=== PATIENT | male | born 1940 | race Caucasian/White ===

== ENCOUNTER 2017-01-06 12:47 | Emergency (ER) | payer MEDICARE, OTHER ==
[~2017-01-06] VITALS: Ht 180.3 cm; Wt 97.0 kg
[2017-01-06 13:41] LABS: HEMATOCRIT 46.5 % (39.2-51.8); WHITE BLOOD COUNT 7.5 x10^3/uL (3.4-10)
[2017-01-06 13:52] LABS: BLOOD UREA NITROGEN 14 mg/dL (7-18)
[2017-01-06 13:59] LABS: IS PT STATUS REG ER OR PRE ER? YES
[2017-01-06 14:12] VITALS: BP 176/80
== END 2017-01-06 15:21 | disposition home or self-care (01) ==
LOC: ED 14:31
DX: R42 Dizziness and giddiness (principal); K21.9 Gastro-esophageal reflux disease without esophagitis
CPT/HCPCS: 36415; 71010; 80048; 82040; 84484; 85025; 93005; 99285

== ENCOUNTER → 2017-02-25 | Outpatient (CLI) | payer OTHER ==
[~2017-02-25] MED LIST: REGADENOSON 0.4 MG/5 ML SYRINGE ONE
== END | disposition home or self-care (01) ==
LOC: CFH 06:40
PROVIDERS: ATTEND Internal Medicine Cardiovascular Disease
DX: I08.1 Rheumatic disorders of both mitral and tricuspid valves (principal); I44.7 Left bundle-branch block, unspecified; I11.9 Hypertensive heart disease without heart failure
CPT/HCPCS: 78452; 93017; 93306; A9502; J2785

== ENCOUNTER → 2017-03-11 | Outpatient (CLI) | payer OTHER | END | disposition home or self-care (01) | LOC: CFH 08:31 | PROVIDERS: ATTEND Student in an Organized Health Care Education/Training Program | DX: M51.36 Other intervertebral disc degeneration, lumbar region (principal); M51.27 Other intervertebral disc displacement, lumbosacral region; D18.09 Hemangioma of other sites | CPT/HCPCS: 72148 ==

== ENCOUNTER → 2017-07-11 | Outpatient (CLI) | payer OTHER | END | disposition home or self-care (01) | LOC: CFH 06:41 | PROVIDERS: ATTEND Student in an Organized Health Care Education/Training Program | DX: M47.814 Spondylosis without myelopathy or radiculopathy, thoracic region (principal); M51.34 Other intervertebral disc degeneration, thoracic region | CPT/HCPCS: 72146 ==

== ENCOUNTER 2019-01-06 07:56 | Outpatient (CLI) | payer OTHER | END 2019-01-06 23:59 | disposition home or self-care (01) | LOC: CFH 07:56 | PROVIDERS: ATTEND Family Medicine | DX: Z13.6 Encounter for screening for cardiovascular disorders (principal) | CPT/HCPCS: 76706 ==

== ENCOUNTER 2019-08-29 16:43 | Observation (INO) | payer OTHER ==
[~2019-08-29] VITALS: Ht 180.3 cm; Wt 97.1 kg
[2019-08-29] MEDS ORDERED: ASPIRIN 81 MG TABLET CHEW ONE (16:53)
[2019-08-29] MEDS ORDERED: NITROGLYCERIN SINGLE TAB 0.4 MG SL ONE (16:53)
[2019-08-29] MEDS ORDERED: ASPIRIN 81 MG TABLET CHEW PO ONE (17:00)
[2019-08-29] MEDS ORDERED: SODIUM CHLORIDE FLUSH 10ML SYR IVF ONE (17:00)
[2019-08-29] MEDS ORDERED: NITROGLYCERIN SINGLE TAB 0.4 MG SL PRN (17:00)
--- NOTE | 2019-08-29 17:06 | NUR ---
Late Entry: Pt found in lobby bent over reporting crushing chest pressure with no radiaiton. Pt reports he has a hx of left bundle block. Pt take to room straight back and ekg completed no stemi detected on ekg. Prominent left bundle branch block. Pt had large bore piv placed and given 324 asa and one nitro sublingual that resolved the chest pressure, upon pressure resolving pt had a run of vtach for 6 beats. MD Greenwood informed of found event, repeat EKG shows no changes. Bedside report to Jose. Pt resting in room and a/ox4.
[2019-08-29 17:31] LABS: BASOPHILS # (AUTO) 0.06 x10^3/uL (0-0.1); BASOPHILS % (AUTO) 1 % (0-1); EOSINOPHILS # (AUTO) 0.12 x10^3/uL (0-0.4); EOSINOPHILS % (AUTO) 1 % (1-7); LYMPHOCYTES # (AUTO) 4.12 x10^3/uL (1-3.4); LYMPHOCYTES % (AUTO) 47 % (22-44); MD NO; MEAN CORPUSCULAR HEMOGLOBIN 29.2 pg (27.5-34.5); MEAN CORPUSCULAR HGB CONC 33.4 g/dL (33.2-36.2); MEAN CORPUSCULAR VOLUME 87.2 fL (81-97); MEAN PLATELET VOLUME 8.3 fL (7.4-10.4); MONOCYTES # (AUTO) 0.52 x10^3/uL (0.2-0.8); MONOCYTES % (AUTO) 6 % (2-9); NEUTROPHILS # (AUTO) 3.87 x10^3/uL (1.8-6.8); NEUTROPHILS % (AUTO) 45 % (42-75); PLATELET COUNT 275 x10^3/uL (130-400); RED BLOOD COUNT 5.79 x10^6/uL (4.38-5.82); RED CELL DISTRIBUTION WIDTH 12.8 % (9.4-14.8)
[2019-08-29 17:38] LABS: ALANINE AMINOTRANSFERASE 30 U/L (12-78); ALBUMIN 4.2 g/dL (3.4-5.0); ANION GAP 11 mmol/L (5-15); CALCIUM 8.9 mg/dL (8.5-10.1); CHLORIDE 103 mmol/L (98-107)
[2019-08-29 17:42] LABS: ALKALINE PHOSPHATASE 91 U/L (45-117); BILIRUBIN,TOTAL 0.4 mg/dL (0.2-1.0); TOTAL PROTEIN 8.2 g/dL (6.4-8.2); TROPONIN I < 0.015 ng/mL (0.000-0.045)
[2019-08-29] MEDS ORDERED: SODIUM CHLORIDE 0.9% 1,000 ML IV SCH (19:16)
[2019-08-29] MEDS ORDERED: ACETAMINOPHEN 325 MG TABLET PO PRN (19:30)
[2019-08-29] MEDS ORDERED: POTASSIUM CHLORIDE 40 MEQ in SODIUM CHLORIDE 0.9% 500 ML IV ONE (19:30)
[2019-08-29] MEDS ORDERED: PROMETHAZINE 25 MG/ML, 1ML IM PRN (19:30)
[2019-08-29] MEDS ORDERED: morphine SULFATE 10 MG/ML, 1ML IVPush PRN (19:30)
[2019-08-29] MEDS ORDERED: ONDANSETRON 2MG/ML, 2ML IVPush PRN (19:30)
[2019-08-29] MEDS ORDERED: BISACODYL 10 MG SUPP PR PRN (19:30)
[2019-08-29] MEDS ORDERED: OXYcodone IR 5MG TABLET PO PRN (19:30)
[2019-08-29] MEDS ORDERED: NITROGLYCERIN 0.4 MG BOTTLE (25 TABS) SL PRN (19:30)
[2019-08-29] MEDS ORDERED: DOCUSATE 100 MG CAPSULE PO PRN (19:30)
[2019-08-29] MEDS ORDERED: ONDANSETRON ODT 4 MG PO PRN (19:30)
[2019-08-29] MEDS ORDERED: hydrALAzine 20 MG/ML, 1ML IVPush PRN (19:30)
[2019-08-29] MEDS ORDERED: POLYETHYLENE GLYCOL 17 GM PACKET PO PRN (19:30)
[2019-08-29 19:45] VITALS: BP 138/79
[2019-08-29] MEDS ORDERED: HYDR25TA6 PO (20:11)
[2019-08-29] MEDS ORDERED: AMLO10TA4 PO (20:11)
[2019-08-29] MEDS ORDERED: VALS160T3 PO (20:11)
[2019-08-29 20:14] LABS: FREE T4 (FREE THYROXINE) 1.14 ng/dL (0.76-1.46)
[2019-08-29] MEDS: HEPARIN 5,000 UNITS/ML, 1ML SQ SCH (20:24)
[2019-08-30 01:04] VITALS: BP 119/75
[2019-08-30 02:12] LABS: BASOPHILS # (AUTO) 0.03 x10^3/uL (0-0.1); BASOPHILS % (AUTO) 1 % (0-1); EOSINOPHILS # (AUTO) 0.08 x10^3/uL (0-0.4); EOSINOPHILS % (AUTO) 1 % (1-7); LYMPHOCYTES # (AUTO) 2.45 x10^3/uL (1-3.4); LYMPHOCYTES % (AUTO) 38 % (22-44); MD NO; MEAN CORPUSCULAR HEMOGLOBIN 29.2 pg (27.5-34.5); MEAN CORPUSCULAR HGB CONC 33.3 g/dL (33.2-36.2); MEAN CORPUSCULAR VOLUME 87.6 fL (81-97); MEAN PLATELET VOLUME 8.1 fL (7.4-10.4); MONOCYTES # (AUTO) 0.56 x10^3/uL (0.2-0.8); MONOCYTES % (AUTO) 9 % (2-9); NEUTROPHILS # (AUTO) 3.29 x10^3/uL (1.8-6.8); NEUTROPHILS % (AUTO) 51 % (42-75); PLATELET COUNT 234 x10^3/uL (130-400); RED BLOOD COUNT 5.27 x10^6/uL (4.38-5.82); RED CELL DISTRIBUTION WIDTH 12.8 % (9.4-14.8)
[2019-08-30 02:18] LABS: ALBUMIN 3.4 g/dL (3.4-5.0); ANION GAP 6 mmol/L (5-15); CALCIUM 8.2 mg/dL (8.5-10.1); CHLORIDE 110 mmol/L (98-107)
[2019-08-30 02:22] LABS: ALANINE AMINOTRANSFERASE 24 U/L (12-78); ALKALINE PHOSPHATASE 75 U/L (45-117); BILIRUBIN,TOTAL 0.5 mg/dL (0.2-1.0); CHOLESTEROL, TOTAL 180 mg/dL (140-239); CREATININE 1.21 mg/dL (0.7-1.3); HDL CHOL % 20 % (26-37); HDL CHOLESTEROL (DIRECT) 36 mg/dL (40-60); LDL CHOLESTEROL,CALCULATED 95 mg/dL (54-169); LDL/HDL RATIO 2.6 (0.5-3.0); TOTAL PROTEIN 6.6 g/dL (6.4-8.2); TRIGLYCERIDES 245 mg/dL (50-200); VLDL CHOLESTEROL 49 mg/dL (0-25)
[2019-08-30] MEDS: ASPIRIN 325 MG TABLET EC PO SCH (05:22)
[2019-08-30] MEDS: HEPARIN 5,000 UNITS/ML, 1ML SQ SCH ×3 (05:22→20:07)
[2019-08-30 07:05] VITALS: BP 120/76
[2019-08-30] MEDS: AMLODIPINE 10 MG TAB PO SCH (08:13)
[2019-08-30] MEDS ORDERED: VALSARTAN 80 MG TABLET PO SCH (09:00)
[2019-08-30 13:02] VITALS: BP 129/75
[2019-08-30] MEDS ORDERED: MIDAZOLAM 1 MG/ML, 2ML ONE ×2 (16:38→17:05)
[2019-08-30] MEDS ORDERED: FENTANYL PF 100 MCG/2ML ONE ×2 (16:38→17:05)
[2019-08-30] MEDS ORDERED: VERAPAMIL 2.5 MG/ML, 2ML ONE (16:38)
[2019-08-30] MEDS ORDERED: LIDOCAINE-MPF 1%, 5ML ONE (16:39)
[2019-08-30] MEDS ORDERED: HEPARIN 1,000 UNITS/ML, 10ML ONE (16:39)
[2019-08-30] MEDS ORDERED: BIVALIRUDIN 250 MG ONE (17:05)
[2019-08-30] MEDS ORDERED: CLOPIDOGREL 300 MG TABLET ONE (17:05)
[2019-08-30] MEDS ORDERED: BIVALIRUDIN 250 MG in SODIUM CHLORIDE 0.9% 50 ML IV SCH (17:25)
[2019-08-30 18:46] VITALS: BP 116/74
[2019-08-30] MEDS ORDERED: ATORVASTATIN 40 MG TABLET PO SCH (21:00)
[2019-08-31 00:54] VITALS: BP 121/72
[2019-08-31 04:03] LABS: BASOPHILS # (AUTO) 0.06 x10^3/uL (0-0.1); BASOPHILS % (AUTO) 1 % (0-1); EOSINOPHILS # (AUTO) 0.13 x10^3/uL (0-0.4); EOSINOPHILS % (AUTO) 2 % (1-7); LYMPHOCYTES # (AUTO) 2.47 x10^3/uL (1-3.4); LYMPHOCYTES % (AUTO) 30 % (22-44); MD NO; MEAN CORPUSCULAR HEMOGLOBIN 29.5 pg (27.5-34.5); MEAN CORPUSCULAR HGB CONC 33.9 g/dL (33.2-36.2); MEAN CORPUSCULAR VOLUME 87.1 fL (81-97); MEAN PLATELET VOLUME 7.8 fL (7.4-10.4); MONOCYTES # (AUTO) 0.64 x10^3/uL (0.2-0.8); MONOCYTES % (AUTO) 8 % (2-9); NEUTROPHILS # (AUTO) 5.09 x10^3/uL (1.8-6.8); NEUTROPHILS % (AUTO) 61 % (42-75); PLATELET COUNT 233 x10^3/uL (130-400); RED BLOOD COUNT 5.31 x10^6/uL (4.38-5.82); RED CELL DISTRIBUTION WIDTH 12.8 % (9.4-14.8)
[2019-08-31 04:12] LABS: ALBUMIN 3.3 g/dL (3.4-5.0); ANION GAP 6 mmol/L (5-15); CALCIUM 8.7 mg/dL (8.5-10.1); CHLORIDE 110 mmol/L (98-107); CREATININE 1.21 mg/dL (0.7-1.3)
[2019-08-31] MEDS: ASPIRIN 325 MG TABLET EC PO SCH (05:51)
[2019-08-31] MEDS: HEPARIN 5,000 UNITS/ML, 1ML SQ SCH (05:51)
[2019-08-31 07:45] VITALS: BP 122/67
[2019-08-31] MEDS ORDERED: CLOPIDOGREL 75 MG TABLET PO SCH (09:00)
[2019-08-31] MEDS: AMLODIPINE 10 MG TAB PO SCH (09:46)
[2019-08-31] MEDS ORDERED: ASPI81TA45 PO (11:03)
[2019-08-31] MEDS ORDERED: ATOR40TA78 PO (11:03)
[2019-08-31] MEDS ORDERED: CLOP75TA PO (11:03)
[2019-09-01] MEDS ORDERED: ASPIRIN 81 MG TABLET EC PO SCH (06:00)
== END 2019-08-31 11:45 | disposition home or self-care (01) ==
LOC: ED 18:23 → INTOOBSV 18:44 → EDIP 18:44 → 5SO 18:57 → DCLOUNGE 08-31 11:35
PROVIDERS: ADMIT Internal Medicine; ATTEND Family Medicine
DX: R07.89 Other chest pain (principal); E87.6 Hypokalemia; I44.7 Left bundle-branch block, unspecified; K21.9 Gastro-esophageal reflux disease without esophagitis; I10 Essential (primary) hypertension; R60.9 Edema, unspecified; R79.89 Other specified abnormal findings of blood chemistry; I47.2 Ventricular tachycardia; N28.9 Disorder of kidney and ureter, unspecified; I21.4 Non-ST elevation (NSTEMI) myocardial infarction; I25.10 Atherosclerotic heart disease of native coronary artery without angina pectoris; R00.1 Bradycardia, unspecified; Z87.891 Personal history of nicotine dependence; Z79.82 Long term (current) use of aspirin; Z79.899 Other long term (current) drug therapy; Z90.49 Acquired absence of other specified parts of digestive tract
CPT/HCPCS: 36415; 71045; 80053; 80061; 80069; 83036; 83735; 83880; 84439; 84443; 84481; 84484; 85025; 93005; 93458; 96365; 96366; 96372; 99156; 99157; 99285; C1725; C1769; C1874; C1887; C1894; C8929; C9600; G0378; J0583; J1644; J2250; J3010; J3480; J7040; Q9957; Q9967

== ENCOUNTER 2020-04-16 16:23 | Observation (INO) | payer OTHER ==
[~2020-04-16] VITALS: Ht 177.8 cm; Wt 95.0 kg
[~2020-04-16 16:23] MED LIST changes: +AMLO10TA4 PO; +ASPI81TA45 PO; +ATOR40TA78 PO; +CLOP75TA PO; +HYDR25TA6 PO; -REGADENOSON 0.4 MG/5 ML SYRINGE ONE; +VALS160T3 PO
--- NOTE | 2020-04-16 16:52 | NUR ---
First contact with pt. Pt c/o 05/24 middle chest "pressure" starting 30min [employer]. Pt reports he was at rest when it started. 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 Pt speaking in full sentences, resp even and unlabored. Pt placed in gown, positioned for comfort in bed with warm blankets. Continuous heart, oxygen and BP monitors applied, all safety measures observed. Dr. Guerrero at bedside to evaluate pt.
[2020-04-16] MEDS ORDERED: ASPIRIN 81 MG TABLET CHEW PO ONE (17:00)
[2020-04-16] MEDS ORDERED: NITROGLYCERIN SINGLE TAB 0.4 MG SL PRN (17:00)
[2020-04-16] MEDS ORDERED: NITROGLYCERIN SINGLE TAB 0.4 MG SL ONE (17:05)
[2020-04-16] MEDS ORDERED: ASPIRIN 81 MG TABLET CHEW ONE (17:05)
[2020-04-16 17:10] LABS: BASOPHILS % (AUTO) 1 % (0-1); EOSINOPHILS % (AUTO) 2 % (1-7); LYMPHOCYTES % (AUTO) 30 % (22-44); MD NO; MEAN CORPUSCULAR HEMOGLOBIN 29.9 pg (27.5-34.5); MEAN CORPUSCULAR HGB CONC 34.9 g/dL (33.2-36.2); MEAN PLATELET VOLUME 7.7 fL (7.4-10.4); MONOCYTES % (AUTO) 9 % (2-9); NEUTROPHILS % (AUTO) 57 % (42-75); PLATELET COUNT 239 x10^3/uL (130-400); RED BLOOD COUNT 5.56 x10^6/uL (4.38-5.82); RED CELL DISTRIBUTION WIDTH 13.6 % (9.4-14.8)
--- NOTE | 2020-04-16 17:10 | NUR ---
Pt medicated per MAR for 310 chest "heaviness".
--- NOTE | 2020-04-16 17:14 | NUR ---
Pt reports heaviness in chest increased to 4/10 after one tab ntg, also reports dizziness, nausea. Pt's BP 59/38. 2L O2 via NC applied, IV fluids initiated. Dr. Guerrero updated on events.
[2020-04-16 17:27] LABS: ALBUMIN 4.2 g/dL (3.4-5.0); ANION GAP 6 mmol/L (5-15); CALCIUM 9.3 mg/dL (8.5-10.1); CHLORIDE 106 mmol/L (98-107); CREATININE 1.42 mg/dL (0.7-1.3)
[2020-04-16] MEDS ORDERED: SODIUM CHLORIDE 0.9%, 500ML IVBOLUS ONE (17:30)
[2020-04-16 17:32] LABS: TROPONIN I < 0.015 ng/mL (0.000-0.045)
[2020-04-16] MEDS ORDERED: OMNIPAQUE 350 MG/ML, 100ML BOTTLE ONE (18:00)
[2020-04-16] MEDS ORDERED: ONDANSETRON 2MG/ML, 2ML IVPush ONE (18:00)
[2020-04-16] MEDS ORDERED: ONDANSETRON 2MG/ML, 2ML ONE (18:00)
[2020-04-16] MEDS ORDERED: MORPHINE SULFATE 4 MG/ML, 1ML ONE ×2 (18:00→18:47)
[2020-04-16] MEDS: MORPHINE SULFATE 4 MG/ML, 1ML IVPush PRN ×2 (18:09→18:48)
--- NOTE | 2020-04-16 18:09 | NUR ---
Pt medicated for 4/10 chest heaviness per MAR. Pt to CT via [place] at this time.
--- NOTE | 2020-04-16 18:38 | NUR ---
Pt back from CT, reports pain initially had improved after morphine admin to 2/10, now back up to 4/10.
[2020-04-16] MEDS ORDERED: NITROGLYCERIN 0.4 MG BOTTLE (25 TABS) SL PRN (19:00)
[2020-04-16] MEDS ORDERED: DOCUSATE 100 MG CAPSULE PO PRN (19:00)
--- NOTE | 2020-04-16 19:01 | NUR ---
Report to Raina PADILLA.
--- NOTE | 2020-04-16 19:10 | NUR ---
patient resting in bed. still rating his chest heaviness 5-6/10. VS remain stable on 1L via NC. in NAD. will continue to monitor. safety maintained. went home for time being. I will notify her when patient is transferred to inpatient room. Sandra - [phone]
--- NOTE | 2020-04-16 20:18 | NUR ---
report given to Deb PADILLA on [facility] tele.
[2020-04-16] MEDS ORDERED: SODIUM CHLORIDE 0.9% 1,000 ML IV SCH (20:30)
--- NOTE | 2020-04-16 20:49 | NUR ---
Sandra, , called and updated on patient's transfer to inpatient floor. she states that patient was shoveling snow recently and was wondering if this was the cause of CP. RN updated her on plan to trend labs. all belongings sent with patient. VS remain stable. PO fluids provided prior to transfer. patient continues to c/o chest discomfort.
[2020-04-16] MEDS ORDERED: ATORVASTATIN 40 MG TABLET PO SCH (21:00)
[2020-04-16 21:36] LABS: TROPONIN I < 0.015 ng/mL (0.000-0.045)
[2020-04-16] MEDS ORDERED: MAALOX/HYOSCYAMINE/LIDOCAINE 45 ML BTL PO ONE (22:00)
[2020-04-16] MEDS: SODIUM CHLORIDE FLUSH 10ML SYR IVF SCH (22:23)
[2020-04-16 22:24] VITALS: BP 127/79
[2020-04-17 01:13] LABS: TROPONIN I < 0.015 ng/mL (0.000-0.045)
[2020-04-17 01:44] VITALS: BP 129/77
[2020-04-17 05:50] LABS: BASOPHILS % (AUTO) 0 % (0-1); EOSINOPHILS % (AUTO) 0 % (1-7); LYMPHOCYTES % (AUTO) 6 % (22-44); MEAN CORPUSCULAR HEMOGLOBIN 29.5 pg (27.5-34.5); MEAN CORPUSCULAR HGB CONC 34.4 g/dL (33.2-36.2); MEAN PLATELET VOLUME 7.9 fL (7.4-10.4); MONOCYTES % (AUTO) 6 % (2-9); NEUTROPHILS % (AUTO) 88 % (42-75); PLATELET COUNT 227 x10^3/uL (130-400); RED BLOOD COUNT 5.15 x10^6/uL (4.38-5.82); RED CELL DISTRIBUTION WIDTH 13.6 % (9.4-14.8)
[2020-04-17 05:58] LABS: CHLORIDE 106 mmol/L (98-107)
[2020-04-17 06:03] LABS: ANION GAP 7 mmol/L (5-15); CALCIUM 8.5 mg/dL (8.5-10.1); CREATININE 1.19 mg/dL (0.7-1.3)
[2020-04-17 06:47] LABS: MD SCAN
[2020-04-17 07:34] VITALS: BP 125/76
[2020-04-17] MEDS ORDERED: HYDROCHLOROTHIAZIDE 25 MG TABLET PO SCH (09:00)
[2020-04-17] MEDS ORDERED: CLOPIDOGREL 75 MG TABLET PO SCH (09:00)
[2020-04-17] MEDS ORDERED: VALSARTAN 160 MG TABLET PO SCH (09:00)
[2020-04-17] MEDS ORDERED: AMLODIPINE 10 MG TAB PO SCH (09:00)
[2020-04-17] MEDS: SODIUM CHLORIDE FLUSH 10ML SYR IVF SCH (09:29)
[2020-04-17 12:16] VITALS: BP 116/72
== END 2020-04-17 15:05 | disposition home or self-care (01) ==
LOC: ED 19:36 → EDIP 19:47 → 5SO 20:28 → DCLOUNGE 04-17 15:00
PROVIDERS: ADMIT Family Medicine; ATTEND Internal Medicine
DX: R07.89 Other chest pain (principal); I25.10 Atherosclerotic heart disease of native coronary artery without angina pectoris; I10 Essential (primary) hypertension; N17.9 Acute kidney failure, unspecified; K21.9 Gastro-esophageal reflux disease without esophagitis; Z87.891 Personal history of nicotine dependence; Z79.82 Long term (current) use of aspirin; Z79.899 Other long term (current) drug therapy; Z95.5 Presence of coronary angioplasty implant and graft
CPT/HCPCS: 36415; 71045; 71275; 80048; 82040; 83880; 84484; 85025; 93005; 93306; 96361; 96374; 96375; 96376; 99285; G0378; J2270; J2405; J7030; J7040; Q9967

== ENCOUNTER 2020-04-21 11:03 | Inpatient (IN) | payer OTHER ==
[~2020-04-21] VITALS: Ht 177.8 cm; Wt 92.0 kg
--- NOTE | 2020-04-21 11:56 | NUR ---
TASK RN: PIV STARTED, LABS DRAWN, IVF STARTED PER EMAR. PT RESTING ON GURNEY W/ CALL LIGHT IN REACH, SIDE RAIL UP AND FAMILY AT BEDSIDE. DRAGAN CLINE.
[2020-04-21] MEDS ORDERED: SODIUM CHLORIDE FLUSH 10ML SYR IVF ONE (12:00)
[2020-04-21] MEDS ORDERED: SODIUM CHLORIDE 0.9% 1,000ML IVBOLUS ONE (12:00)
[2020-04-21 12:13] LABS: BASOPHILS % (AUTO) 1 % (0-1); EOSINOPHILS % (AUTO) 0 % (1-7); LYMPHOCYTES % (AUTO) 10 % (22-44); MEAN CORPUSCULAR HEMOGLOBIN 29.8 pg (27.5-34.5); MEAN PLATELET VOLUME 7.4 fL (7.4-10.4); MONOCYTES % (AUTO) 12 % (2-9); NEUTROPHILS % (AUTO) 77 % (42-75); PLATELET COUNT 307 x10^3/uL (130-400); RED BLOOD COUNT 4.55 x10^6/uL (4.38-5.82); RED CELL DISTRIBUTION WIDTH 13.5 % (9.4-14.8)
[2020-04-21 12:27] LABS: ALANINE AMINOTRANSFERASE 61 U/L (12-78); ALBUMIN 2.7 g/dL (3.4-5.0); ANION GAP 9 mmol/L (5-15); CALCIUM 8.8 mg/dL (8.5-10.1); CHLORIDE 95 mmol/L (98-107); CREATININE 2.03 mg/dL (0.7-1.3)
[2020-04-21 12:29] LABS: ALKALINE PHOSPHATASE 126 U/L (45-117); BILIRUBIN,TOTAL 1.4 mg/dL (0.2-1.0); TOTAL PROTEIN 6.8 g/dL (6.4-8.2)
[2020-04-21 12:37] LABS: MD SCAN
--- NOTE | 2020-04-21 12:49 | NUR ---
PT C/O INTERMITTENT UPPER RIGHT ABD PAIN. PT DENIES ANY ABD PAIN AT THIS TIME. PT DENIES N/V OR OTHER GI COMPLAINTS.
--- NOTE | 2020-04-21 13:44 | NUR ---
Spoke with Deb Whitmore from Registration and she states that [facility] is a contracted insurance with [facility] and therefore can be admitted to our hospital as [facility] is different than [facility] insurance.
--- NOTE | 2020-04-21 13:57 | NUR ---
task rn: pt medicated per mar with abx. k+ at bedside. md at bedside to update pt on poc. all questions answered by provider. rapid covid performed and walked down by this rn
[2020-04-21] MEDS ORDERED: POTASSIUM CHLORIDE 40 MEQ in SODIUM CHLORIDE 0.9% 500 ML IV ONE (14:00)
[2020-04-21] MEDS ORDERED: CEFOTETAN PMX 1GM/50ML 50 ML IVPB ONE (14:00)
[2020-04-21 14:01] LABS: MICROSCOPIC INDICATED
--- NOTE | 2020-04-21 14:04 | NUR ---
RAPID COVID TEST WALKED TO LAB
[2020-04-21] MEDS ORDERED: BUPIVACAINE/PF 0.5% ONE (14:10)
[2020-04-21] MEDS ORDERED: FENTANYL PF 250 MCG/5ML ONE (14:17)
[2020-04-21] MEDS ORDERED: CHLORHEXIDINE 15 ML UDC ONE (14:26)
[2020-04-21] MEDS ORDERED: CHLORHEXIDINE 15 ML UDC MM ONE (14:30)
[2020-04-21 17:44] VITALS: BP 103/56
[2020-04-21] MEDS ORDERED: ASPI81TA45 PO (18:27)
[2020-04-21] MEDS ORDERED: ACETAMINOPHEN 325 MG TABLET PO PRN (18:30)
[2020-04-21] MEDS ORDERED: ONDANSETRON 2MG/ML, 2ML IVPush PRN (18:30)
[2020-04-21 20:45] VITALS: BP 114/71
[2020-04-21] MEDS: ATORVASTATIN 40 MG TABLET PO SCH (21:40)
[2020-04-21] MEDS: HEPARIN 5,000 UNITS/ML, 1ML SQ SCH (21:40)
[2020-04-21] MEDS: SODIUM CHLORIDE 0.9% 1,000 ML IV SCH (22:57)
[2020-04-21] MEDS: METRONIDAZOLE PMX 500MG/100ML 100 ML IV SCH (22:58)
[2020-04-21] MEDS: HYDROcodone/APAP 5/325 TABLET PO PRN (23:08)
[2020-04-22] MEDS: CEFTRIAXONE PMX 1GM/50ML 50 ML IV SCH ×2 (00:13→23:46)
[2020-04-22 01:51] VITALS: BP 95/60
[2020-04-22] MEDS: HEPARIN 5,000 UNITS/ML, 1ML SQ SCH ×3 (06:23→22:34)
[2020-04-22] MEDS: HYDROcodone/APAP 5/325 TABLET PO PRN (06:23)
[2020-04-22] MEDS: METRONIDAZOLE PMX 500MG/100ML 100 ML IV SCH ×3 (06:23→22:17)
[2020-04-22 06:33] LABS: BASOPHILS % (AUTO) 1 % (0-1); EOSINOPHILS % (AUTO) 1 % (1-7); LYMPHOCYTES % (AUTO) 11 % (22-44); MD NO; MEAN CORPUSCULAR HEMOGLOBIN 29.2 pg (27.5-34.5); MEAN CORPUSCULAR HGB CONC 33.9 g/dL (33.2-36.2); MEAN PLATELET VOLUME 7.2 fL (7.4-10.4); MONOCYTES % (AUTO) 11 % (2-9); NEUTROPHILS % (AUTO) 77 % (42-75); PLATELET COUNT 299 x10^3/uL (130-400); RED BLOOD COUNT 4.64 x10^6/uL (4.38-5.82); RED CELL DISTRIBUTION WIDTH 13.5 % (9.4-14.8)
[2020-04-22 06:37] LABS: CHLORIDE 105 mmol/L (98-107)
[2020-04-22 06:46] LABS: ALANINE AMINOTRANSFERASE 49 U/L (12-78); ALBUMIN 2.4 g/dL (3.4-5.0); ALKALINE PHOSPHATASE 128 U/L (45-117); ANION GAP 5 mmol/L (5-15); BILIRUBIN,TOTAL 0.9 mg/dL (0.2-1.0); CALCIUM 8.5 mg/dL (8.5-10.1); CHOL/HDL RATIO 4.1; CHOLESTEROL, TOTAL 86 mg/dL (140-239); CREATININE 1.36 mg/dL (0.7-1.3); HDL CHOL % 24 % (26-37); HDL CHOLESTEROL (DIRECT) 21 mg/dL (40-60); LDL CHOLESTEROL,CALCULATED 43 mg/dL (54-169); TOTAL PROTEIN 6.5 g/dL (6.4-8.2); TRIGLYCERIDES 112 mg/dL (50-200); VLDL CHOLESTEROL 22 mg/dL (0-25)
[2020-04-22] MEDS: AMLODIPINE 10 MG TAB PO SCH (09:38)
[2020-04-22] MEDS: SODIUM CHLORIDE 0.9% 1,000 ML IV SCH (09:38)
[2020-04-22 09:40] VITALS: BP 111/69
[2020-04-22 15:10] VITALS: BP 109/66
[2020-04-22 19:14] VITALS: BP 102/62
[2020-04-22] MEDS: ATORVASTATIN 40 MG TABLET PO SCH (22:22)
[2020-04-23 01:24] VITALS: BP 111/69
[2020-04-23 04:56] LABS: BASOPHILS % (AUTO) 1 % (0-1); EOSINOPHILS % (AUTO) 1 % (1-7); LYMPHOCYTES % (AUTO) 15 % (22-44); MEAN CORPUSCULAR HGB CONC 35.3 g/dL (33.2-36.2); MEAN PLATELET VOLUME 7.2 fL (7.4-10.4); MONOCYTES % (AUTO) 11 % (2-9); NEUTROPHILS % (AUTO) 72 % (42-75); PLATELET COUNT 307 x10^3/uL (130-400); RED CELL DISTRIBUTION WIDTH 13.4 % (9.4-14.8)
[2020-04-23 04:58] LABS: MD NO
[2020-04-23 05:03] LABS: ANION GAP 8 mmol/L (5-15); CALCIUM 7.7 mg/dL (8.5-10.1); CHLORIDE 105 mmol/L (98-107); CREATININE 1.04 mg/dL (0.7-1.3)
[2020-04-23] MEDS: METRONIDAZOLE PMX 500MG/100ML 100 ML IV SCH ×3 (06:41→22:52)
[2020-04-23] MEDS: HEPARIN 5,000 UNITS/ML, 1ML SQ SCH ×2 (06:41→15:50)
[2020-04-23] MEDS: AMLODIPINE 10 MG TAB PO SCH (08:23)
[2020-04-23 09:30] VITALS: BP 100/64
[2020-04-23 13:27] VITALS: BP 111/65
[2020-04-23] MEDS ORDERED: POTASSIUM CHLORIDE 20 MEQ TAB.ER.PRT PO SCH (17:00)
[2020-04-23 19:33] VITALS: BP 112/68
[2020-04-23] MEDS: ATORVASTATIN 40 MG TABLET PO SCH (20:53)
[2020-04-23] MEDS ORDERED: SIMETHICONE 125 MG CHEW TAB ONE (22:41)
[2020-04-23] MEDS ORDERED: SIMETHICONE 125 MG CHEW TAB PO PRN (23:00)
[2020-04-24] MEDS: CEFTRIAXONE PMX 1GM/50ML 50 ML IV SCH (00:13)
[2020-04-24] MEDS: HEPARIN 5,000 UNITS/ML, 1ML SQ SCH ×3 (00:14→16:58)
[2020-04-24 00:54] VITALS: BP 111/68
[2020-04-24 05:42] LABS: BASOPHILS % (AUTO) 1 % (0-1); EOSINOPHILS % (AUTO) 2 % (1-7); LYMPHOCYTES % (AUTO) 23 % (22-44); MEAN CORPUSCULAR HEMOGLOBIN 29.8 pg (27.5-34.5); MEAN CORPUSCULAR HGB CONC 34.9 g/dL (33.2-36.2); MEAN PLATELET VOLUME 7.1 fL (7.4-10.4); MONOCYTES % (AUTO) 10 % (2-9); NEUTROPHILS % (AUTO) 64 % (42-75); PLATELET COUNT 382 x10^3/uL (130-400); RED BLOOD COUNT 4.62 x10^6/uL (4.38-5.82); RED CELL DISTRIBUTION WIDTH 13.4 % (9.4-14.8)
[2020-04-24 05:51] LABS: MD NO
[2020-04-24 05:52] LABS: ANION GAP 10 mmol/L (5-15); CALCIUM 8.3 mg/dL (8.5-10.1); CHLORIDE 109 mmol/L (98-107); CREATININE 1.09 mg/dL (0.7-1.3)
[2020-04-24] MEDS: METRONIDAZOLE PMX 500MG/100ML 100 ML IV SCH ×3 (06:45→22:17)
[2020-04-24 07:45] VITALS: BP 103/68
[2020-04-24] MEDS: AMLODIPINE 10 MG TAB PO SCH (08:31)
[2020-04-24 11:12] LABS: CLOSTRIDIUM DIFFICILE ANTIGEN NEGATIVE; CLOSTRIDIUM DIFFICILE TOXIN NEGATIVE (Negative)
[2020-04-24] MEDS: LOPERAMIDE 2 MG CAPSULE PO PRN (12:10)
[2020-04-24 13:35] VITALS: BP 117/73
[2020-04-24] MEDS: POTASSIUM CHLORIDE 20 MEQ TAB.ER.PRT PO SCH (16:58)
[2020-04-24 19:20] VITALS: BP 117/75
[2020-04-24] MEDS: ATORVASTATIN 40 MG TABLET PO SCH (22:16)
[2020-04-25] MEDS: HEPARIN 5,000 UNITS/ML, 1ML SQ SCH ×3 (00:22→16:29)
[2020-04-25] MEDS: CEFTRIAXONE PMX 1GM/50ML 50 ML IV SCH (00:22)
[2020-04-25 00:28] VITALS: BP 107/68
[2020-04-25] MEDS: METRONIDAZOLE PMX 500MG/100ML 100 ML IV SCH ×3 (06:30→22:36)
[2020-04-25 07:00] VITALS: BP 114/73
[2020-04-25 08:04] LABS: BASOPHILS % (AUTO) 1 % (0-1); EOSINOPHILS % (AUTO) 1 % (1-7); LYMPHOCYTES % (AUTO) 21 % (22-44); MEAN CORPUSCULAR HEMOGLOBIN 29.3 pg (27.5-34.5); MEAN CORPUSCULAR HGB CONC 33.6 g/dL (33.2-36.2); MEAN PLATELET VOLUME 6.8 fL (7.4-10.4); MONOCYTES % (AUTO) 8 % (2-9); NEUTROPHILS % (AUTO) 69 % (42-75); PLATELET COUNT 447 x10^3/uL (130-400); RED BLOOD COUNT 4.81 x10^6/uL (4.38-5.82); RED CELL DISTRIBUTION WIDTH 13.6 % (9.4-14.8)
[2020-04-25 08:10] LABS: ANION GAP 8 mmol/L (5-15); CALCIUM 8.3 mg/dL (8.5-10.1); CHLORIDE 108 mmol/L (98-107); CREATININE 1.22 mg/dL (0.7-1.3)
[2020-04-25 08:11] LABS: MD NO
[2020-04-25] MEDS: AMLODIPINE 10 MG TAB PO SCH (08:23)
[2020-04-25] MEDS: POTASSIUM CHLORIDE 20 MEQ TAB.ER.PRT PO SCH (08:23)
[2020-04-25 13:25] VITALS: BP 106/66
[2020-04-25] MEDS: LOPERAMIDE 2 MG CAPSULE PO PRN (13:53)
[2020-04-25 19:15] VITALS: BP 116/71
[2020-04-25] MEDS: ATORVASTATIN 40 MG TABLET PO SCH (21:35)
[2020-04-26] MEDS: HEPARIN 5,000 UNITS/ML, 1ML SQ SCH ×3 (00:17→22:59)
[2020-04-26] MEDS: CEFTRIAXONE PMX 1GM/50ML 50 ML IV SCH (00:18)
[2020-04-26 01:08] VITALS: BP 118/71
[2020-04-26 06:10] LABS: BASOPHILS % (AUTO) 1 % (0-1); EOSINOPHILS % (AUTO) 2 % (1-7); LYMPHOCYTES % (AUTO) 24 % (22-44); MEAN CORPUSCULAR HEMOGLOBIN 29.4 pg (27.5-34.5); MEAN CORPUSCULAR HGB CONC 34.2 g/dL (33.2-36.2); MEAN PLATELET VOLUME 6.7 fL (7.4-10.4); MONOCYTES % (AUTO) 9 % (2-9); NEUTROPHILS % (AUTO) 65 % (42-75); PLATELET COUNT 390 x10^3/uL (130-400); RED BLOOD COUNT 4.65 x10^6/uL (4.38-5.82); RED CELL DISTRIBUTION WIDTH 13.6 % (9.4-14.8)
[2020-04-26 06:14] LABS: MD NO
[2020-04-26] MEDS: METRONIDAZOLE PMX 500MG/100ML 100 ML IV SCH ×2 (06:18→16:25)
[2020-04-26 06:19] LABS: INTERNATIONAL NORMALIZED RATIO 1.12 (0.93-1.1)
[2020-04-26 06:21] LABS: ANION GAP 10 mmol/L (5-15); CALCIUM 8.3 mg/dL (8.5-10.1); CHLORIDE 111 mmol/L (98-107)
[2020-04-26 06:23] LABS: CREATININE 1.01 mg/dL (0.7-1.3)
[2020-04-26 07:24] VITALS: BP 131/83
[2020-04-26] MEDS: AMLODIPINE 10 MG TAB PO SCH (08:03)
[2020-04-26] MEDS: LOPERAMIDE 2 MG CAPSULE PO PRN (08:06)
[2020-04-26] MEDS: LACTATED RINGERS 1,000 ML IV SCH (08:57)
[2020-04-26 13:09] VITALS: BP 122/75
[2020-04-26] MEDS ORDERED: EPINEPHRINE 1 MG/ML, 1ML ONE (13:35)
[2020-04-26] MEDS ORDERED: BUPIVACAINE/PF 0.5% ONE (13:35)
[2020-04-26] MEDS ORDERED: CHLORHEXIDINE 15 ML UDC ONE (13:43)
[2020-04-26] MEDS ORDERED: FENTANYL PF 250 MCG/5ML ONE (13:55)
[2020-04-26] MEDS ORDERED: CHLORHEXIDINE 15 ML UDC MM ONE (14:00)
[2020-04-26] MEDS ORDERED: BUPIVACAINE/PF 0.5% INFIL ONE (14:25)
[2020-04-26] MEDS ORDERED: ROCURONIUM 10MG/ML,5ML ONE ×2 (14:59)
[2020-04-26] MEDS ORDERED: GLYCOPYRROLATE 0.2MG/1ML, 5ML ONE (14:59)
[2020-04-26] MEDS ORDERED: CEFAZOLIN 1,000 MG ONE (14:59)
[2020-04-26] MEDS ORDERED: SUCCINYLCHOLINE 20 MG/ML, 10ML ONE (14:59)
[2020-04-26] MEDS ORDERED: SUGAMMADEX 200 MG/2 ML IVPush ONE (14:59)
[2020-04-26] MEDS ORDERED: ONDANSETRON 2MG/ML, 2ML ONE (14:59)
[2020-04-26] MEDS ORDERED: PROPOFOL 10 MG/ML, 20ML ONE ×2 (14:59)
[2020-04-26] MEDS ORDERED: NEOSTIGMINE 1 MG/ML, 10ML ONE (14:59)
[2020-04-26] MEDS ORDERED: OXYcodone 5 MG/5 ML ORAL.SOL UDC PO PRN (15:00)
[2020-04-26] MEDS ORDERED: LABETALOL 5MG/ML, 20ML IV PRN (15:00)
[2020-04-26] MEDS ORDERED: hydrALAzine 20 MG/ML, 1ML IV PRN (15:00)
[2020-04-26] MEDS ORDERED: HYDROmorphone 2 MG/ML, 1ML IVPush PRN (15:00)
[2020-04-26] MEDS ORDERED: ALBUTEROL SULFATE 2.5 MG/3 ML NPPB PRN (15:00)
[2020-04-26] MEDS ORDERED: ACETAMINOPHEN 325 MG TABLET PO PRN (15:00)
[2020-04-26] MEDS ORDERED: MEPERIDINE/PF 25MG/0.5ML IVPush PRN (15:00)
[2020-04-26] MEDS ORDERED: PROMETHAZINE 25 MG/ML, 1ML IV PRN (15:00)
[2020-04-26] MEDS ORDERED: METOPROLOL 1 MG/ML, 5ML ONE (15:02)
[2020-04-26] MEDS ORDERED: FENTANYL PF 100 MCG/2ML ONE (15:20)
[2020-04-26] MEDS ORDERED: OXYcodone 5 MG/5 ML ORAL.SOL UDC ONE (15:20)
[2020-04-26] MEDS: FENTANYL PF 100 MCG/2ML IV PRN ×4 (15:21→15:45)
[2020-04-26] MEDS ORDERED: HYDROmorphone 1 MG/ML, 1ML INJ IV ONE (16:30)
[2020-04-26] MEDS ORDERED: HYDROcodone/APAP 5/325 TABLET PO PRN (17:30)
[2020-04-26 19:05] VITALS: BP 113/70
[2020-04-26] MEDS: ATORVASTATIN 40 MG TABLET PO SCH (20:19)
[2020-04-27] MEDS: CEFTRIAXONE PMX 1GM/50ML 50 ML IV SCH (00:28)
[2020-04-27 00:32] VITALS: BP 120/66
[2020-04-27] MEDS: METRONIDAZOLE PMX 500MG/100ML 100 ML IV SCH ×2 (01:20→08:07)
[2020-04-27] MEDS: LACTATED RINGERS 1,000 ML IV SCH (02:37)
[2020-04-27 03:50] VITALS: BP 114/67
[2020-04-27 04:43] LABS: BASOPHILS % (AUTO) 0 % (0-1); EOSINOPHILS % (AUTO) 0 % (1-7); LYMPHOCYTES % (AUTO) 8 % (22-44); MEAN CORPUSCULAR HEMOGLOBIN 29.6 pg (27.5-34.5); MEAN CORPUSCULAR HGB CONC 34.8 g/dL (33.2-36.2); MEAN PLATELET VOLUME 6.6 fL (7.4-10.4); MONOCYTES % (AUTO) 4 % (2-9); NEUTROPHILS % (AUTO) 89 % (42-75); PLATELET COUNT 364 x10^3/uL (130-400); RED BLOOD COUNT 4.33 x10^6/uL (4.38-5.82); RED CELL DISTRIBUTION WIDTH 13.3 % (9.4-14.8)
[2020-04-27 04:47] LABS: MD NO
[2020-04-27 04:51] LABS: ANION GAP 8 mmol/L (5-15); CHLORIDE 110 mmol/L (98-107); CREATININE 0.94 mg/dL (0.7-1.3)
[2020-04-27] MEDS: HEPARIN 5,000 UNITS/ML, 1ML SQ SCH (05:59)
[2020-04-27 06:55] VITALS: BP 127/77
[2020-04-27] MEDS: AMLODIPINE 10 MG TAB PO SCH (08:08)
[2020-04-27] MEDS ORDERED: VALSARTAN 160 MG TABLET PO SCH (09:00)
[2020-04-27] MEDS ORDERED: ASPIRIN 81 MG TABLET CHEW PO SCH (09:00)
[2020-04-27] MEDS ORDERED: HYDROCHLOROTHIAZIDE 25 MG TABLET PO SCH (09:00)
[2020-04-27 13:30] VITALS: BP 107/67
[2020-04-27] MEDS ORDERED: METR500T PO (13:59)
[2020-04-27] MEDS ORDERED: CEFD300C37 PO (13:59)
== END 2020-04-27 15:20 | disposition home or self-care (01) | DRG 418 ==
LOC: ED 12:28 → EDIP 16:57 → 4NW 18:12 → 4NE 04-23 17:34 → DCLOUNGE 04-27 15:13
PROVIDERS: ADMIT Internal Medicine; ATTEND Internal Medicine
PROC: 0FT44ZZ Resection of Gallbladder, Percutaneous Endoscopic Approach (ICD-10-PCS; principal; 2020-04-26 14:00)
DX: K80.00 Calculus of gallbladder with acute cholecystitis without obstruction (principal); N17.9 Acute kidney failure, unspecified; E86.0 Dehydration; E87.6 Hypokalemia; G89.29 Other chronic pain; I10 Essential (primary) hypertension; I25.10 Atherosclerotic heart disease of native coronary artery without angina pectoris; I25.2 Old myocardial infarction; I44.7 Left bundle-branch block, unspecified; Z20.822 Contact with and (suspected) exposure to COVID-19; Z79.02 Long term (current) use of antithrombotics/antiplatelets; Z95.5 Presence of coronary angioplasty implant and graft; Z88.8 Allergy status to other drugs, medicaments and biological substances
CPT/HCPCS: 36415; 96360; 99291; S0020; 71045; 76700; 80048; 80053; 80061; 81001; 83690; 83735; 84100; 85025; 85610; 87324; 87635; 88304; 93005; C1729; G0378; J0171; J0690; J0696; J1170; J1644; J2405; J2704; J2710; J3010; C1760; J0330; J7030; J7120